=== PATIENT | female | born 1955 | race Caucasian/White ===

== ENCOUNTER → 2016-10-14 | Outpatient (CLI) | payer OTHER ==
[~2016-10-14] MED LIST: ALBUAER19 INH; ASPI81TA28 PO; DABI150C PO; LEVO50TA6 PO; METO25TA3 PO; MONT1TAB3 PO; OMEP20CA9 PO; PTDOPS OP
--- NOTE | 2016-10-15 12:36 | MAMMOGRAPHY REPORT ---
BILATERAL DIGITAL SCREENING MAMMOGRAM TOMOSYNTHESIS WITH CAD: 10/14/2016 CLINICAL HISTORY: Routine screening examination. TECHNIQUE: Breast tomosynthesis in addition to standard 2D mammography was performed. Current study was also evaluated with a Computer Aided Detection (CAD) system. COMPARISON: Comparison is made to exams dated: 10/01/2015 mammogram, 08/18/2014 mammogram, 08/16/2013 mammogram, 08/12/2012 mammogram, and 07/17/2011 mammogram - [facility]. BREAST COMPOSITION: The tissue of both breasts is almost entirely fatty. FINDINGS: There are stable punctate microcalcifications in the breasts. No new suspicious mass, arc hitectural distortion or cluster of microcalcifications is seen. IMPRESSION: ACR BI-RADS CATEGORY 1: NEGATIVE There is no mammographic evidence of malignancy. A 1 year screening mammogram is recommended. The p atient will receive written notification of the results. Approximately 10% of breast cancers are not detected with mammography. A negative mammographic repor t should not delay biopsy if a clinically suggestive mass is present. Sharee Katz M.D. ay/:10/14/2016 18:53:21 Bean Sprout Grower: Kitty TOUSSAINT(R)(M), [facility] letter sent: Normal 1/2 BI-RADS Code: ACR BI-RADS Category 1: Negative
== END | disposition home or self-care (01) ==
LOC: C.MAMM 09:06
PROVIDERS: ATTEND Student in an Organized Health Care Education/Training Program
DX: Z12.31 Encounter for screening mammogram for malignant neoplasm of breast (principal)

== ENCOUNTER → 2017-01-28 | Outpatient (CLI) | payer OTHER ==
[2017-01-28 12:38] LABS: BASO % 0.9 %; BASO ABS # 0.05 K/uL (0-0.2); COMPLETE YES; EOS % 3.2 %; HEMATOCRIT 38.9 % (37-47); IG% 0.2 %; LYMPH % 31.9 %; LYMPH ABS # 1.78 K/uL (1.2-3.4); MEAN CELL VOLUME 87.8 fL (80-100); MEAN CORPUSCULAR HEMOGLOBIN 28.2 pg (25-34); MEAN CORPUSCULAR HGB CONC 32.1 g/dl (32-36); MONO % 9.7 %; NEUT % 54.1 %; PLATELET COUNT 270 K/uL (130-400); RED BLOOD COUNT 4.43 M/uL (4.2-5.4); WHITE BLOOD COUNT 5.58 K/uL (4.8-10.8)
[2017-01-28 13:29] LABS: ALT/SGPT 21 U/L (12-78); AST/SGOT 23 U/L (15-37); BLOOD UREA NITROGEN 10 mg/dl (7-18); BUN/CREATININE RATIO 12.9 (10-20); CALCIUM 8.8 mg/dl (8.5-10.1); CARBON DIOXIDE 27 mmol/L (21-32); CHLORIDE 108 mmol/L (98-107); CREATININE 0.75 mg/dl (0.60-1.20); GLUCOSE 80 mg/dl (70-99); POTASSIUM 4.1 mmol/L (3.5-5.1); SODIUM 143 mmol/L (136-145)
[2017-01-28 13:40] LABS: ALKALINE PHOSPHATASE 106 U/L (45-117); CHOLESTEROL 249 mg/dl (0-200); HDL CHOLESTEROL 50 mg/dl; LDL CHOLESTEROL CALCULATED 174 mg/dl; TRIGLYCERIDES 124 mg/dl (0-150); VERY LOW DENSITY LIPOPROT CALC 25 mg/dl
== END | disposition home or self-care (01) ==
LOC: C.LABBFT 07:51
PROVIDERS: ATTEND Internal Medicine
DX: Z00.00 Encounter for general adult medical examination without abnormal findings (principal); I48.91 Unspecified atrial fibrillation; E78.5 Hyperlipidemia, unspecified; E03.9 Hypothyroidism, unspecified; J45.909 Unspecified asthma, uncomplicated

== ENCOUNTER → 2017-11-02 | Outpatient (CLI) | payer OTHER ==
--- NOTE | 2017-11-03 14:58 | MAMMOGRAPHY REPORT ---
BILATERAL DIGITAL SCREENING MAMMOGRAM TOMOSYNTHESIS WITH CAD: 11/02/2017 CLINICAL HISTORY: Routine screening. Patient has no complaints. TECHNIQUE: Breast tomosynthesis in addition to standard 2D mammography was performed. Current study was also evaluated with a Computer Aided Detection (CAD) system. COMPARISON: Comparison is made to exams dated: 10/14/2016 mammogram, 10/01/2015 mammogram, 08/18/2014 ma mmogram, 08/16/2013 mammogram, 08/12/2012 mammogram, and 07/17/2011 mammogram - [facility]. BREAST COMPOSITION: The tissue of both breasts is almost entirely fatty. FINDINGS: No suspicious masses, calcifications, or areas of architectural distortion are noted in ei ther breast. There has been no significant interval change compared to prior exams. Scattered bilater al benign-appearing calcifications are not significantly changed. IMPRESSION: ACR BI-RADS CATEGORY 2: BENIGN There is no mammographic evidence of malignancy. A 1 year screening mammogram is recommended. The pa tient will receive written notification of the results. Approximately 10% of breast cancers are not detected with mammography. A negative mammographic report should not delay biopsy if a clinically suggestive mass is present. Dawna Valero M.D. /:11/02/2017 16:52:35 Programmer Analyst Consultant: Sylvia TOUSSAINT(Hemalatha)(M), [facility] letter sent: Normal 1/2 BI-RADS Code: ACR BI-RADS Category 2: Benign
== END | disposition home or self-care (01) ==
LOC: C.MAMM 16:25
PROVIDERS: ATTEND Internal Medicine
DX: Z12.31 Encounter for screening mammogram for malignant neoplasm of breast (principal)

== ENCOUNTER → 2017-11-23 | Outpatient (CLI) | payer OTHER ==
[2017-11-23 12:56] LABS: ALBUMIN 3.8 gm/dl (3.4-5.0); ALT/SGPT 22 U/L (12-78); BLOOD UREA NITROGEN 11 mg/dl (7-18); CARBON DIOXIDE 26 mmol/L (21-32); CHOLESTEROL 230 mg/dl (0-200); CREATININE 0.79 mg/dl (0.60-1.20); GLUCOSE 86 mg/dl (70-99); POTASSIUM 4.4 mmol/L (3.5-5.1); SODIUM 140 mmol/L (136-145)
[2017-11-23 13:04] LABS: ALKALINE PHOSPHATASE 111 U/L (45-117); AST/SGOT 21 U/L (15-37); LDL CHOLESTEROL CALCULATED 155 mg/dl; TOTAL PROTEIN 7.3 gm/dl (6.4-8.2)
== END | disposition home or self-care (01) ==
LOC: C.LABBFT 08:00
PROVIDERS: ATTEND Physician Assistant Medical
DX: E03.9 Hypothyroidism, unspecified (principal)

== ENCOUNTER 2025-06-18 21:10 | Observation (INO) ==
[2025-06-18 22:08] LABS: Appearance Urine Cloudy (Clear); Bacteria Urine Automated None Seen (None Seen); Cast Urine Automated 0-2 /lpf (0-2); Epithelial Cell Urine Auto 0-2 /hpf (0-2); Glucose Urine UA Negative (Negative); RBC Urine Automated >20 /hpf (0-2); WBC Urine Automated 0-5 /hpf (0-5)
[2025-06-18 22:12] LABS: Hematocrit (blood only) 36.2 % (37.0-47.0); Hemoglobin 11.9 g/dl (12.0-16.0); Immature Granulocytes # (auto) 0.03 K/uL (0.01-0.20); Immature Granulocytes % (auto) 0.3 %; Mean Corpuscular Hemoglobin 28.9 pg (25.0-34.0); Mean Corpuscular Volume 87.9 fL (80.0-100.0); Platelet Count 233 K/uL (130-400); RDW Standard Deviation 43.7 fL (36.4-46.3); Red Blood Count 4.12 M/uL (4.20-5.40); White Blood Count 10.19 K/ul (4.8-10.8)
[2025-06-18] MEDS: ONDANSETRON INJ 2 MG/ML 2 ML VIAL IV STA (22:23)
[2025-06-18] MEDS: HYDROmorphone INJ 0.5 MG/0.5 ML SYR IV STA (22:23)
[2025-06-18] MEDS: KETOROLAC TROMETHAMINE 15 MG/ML VIAL IM PRN (22:23)
[2025-06-18] MEDS: SODIUM CHLORIDE 0.9% 500 ML IV ONE (22:24)
[2025-06-18 22:29] LABS: Alanine Aminotransferase 13.0 U/L (7-52); Albumin Globulin Ratio 1.3 (0.9-2); Albumin Level 4.2 gm/dl (3.4-5.0); Alkaline Phosphatase 102.0 U/L (34-104); Anion Gap 9.0 (3-11); Bilirubin,Total 0.5 mg/dl (0.2-1.0); Blood Urea Nitrogen 15.0 mg/dl (6-23); Calcium 9.6 mg/dl (8.6-10.3); Carbon Dioxide 25.0 mmol/L (21-32); Chloride 105.0 mmol/L (98-107); Creatinine Clr Calc Pharmacy 44.9 ml/min; Globulin 3.2 gm/dl (2.5-4.0); Glucose 110.0 mg/dl (70-99(Fasting)); Lipase 36.0 U/L (11-82); Potassium 4.0 mmol/L (3.5-5.1); Sodium 139.0 mmol/L (136-145); Total Protein 7.4 gm/dl (6.0-8.3)
--- NOTE | 2025-06-18 23:19 | Emergency Department Note ---
Impression & Plan Hydronephrosis with renal and ureteral calculus obstruction, Acute UTI Admit to the [facility] ED Provider Note NAME: BHARATH HERRERA AGE: 70 SEX: Female INFORMANT: Patient ED PROVIDER(S): Tona Tabares DO CHIEF COMPLAINT: Right flank pain PLAN: Disposition: admit to the [facility] MEDICAL DECISION MAKING: This is a 70-year-old female patient who presents to the emergency department complaining of worsening right flank pain. Patient had some mild suprapubic abdominal pressure approximately 4-5 days ago. She was seen by her PCP on Thursday diagnosed with a kidney infection and started on Macrobid just 2 days ago. She seemed to be doing better until around 5 PM this afternoon when she developed right sided flank pain and began vomiting. Patient does describe a previous urological history for which she was hospitalized approximately 18 months ago and underwent a urological procedure with [facility] urology. Care/management discussed with: agricultural equipment sales manager and [facility] Triage Nursing notes: reviewed and agree With them. Vital Signs: reviewed and remarkable for hypertension Chronic Medical/Social Conditions affecting care: previous urological problem Prior/ Outside/ External records reviewed: I did review the urological notes from 18 months ago. I did review urine cultures. Differential Diagnosis: pyelonephritis, ureteral colic, obstructive uropathy Diagnostics, independently interpreted by me: Imaging studies: CT scan of the abdomen/pelvis: As per Imbro HPI: 70 year old Female arrives for evaluation of right flank pain. female patient presents to the emergency department worsening right flank pain. Patient had some mild suprapubic abdominal pressure proximately 4-5 days ago. She was seen by her PCP on Thursday diagnosed with a kidney infection and started on Macrobid just 2 days ago. She seemed to be doing better until around 5 PM this afternoon when she developed right sided flank pain and began vomiting. PAST MEDICAL HISTORY: See Below, PAST SURGICAL HISTORY: See Below, SOCIAL HISTORY: See Below, HOME MEDICATIONS: see list ALLERGIES: see list VITALS: See Below PHYSICAL EXAMINATION: HEENT: Head - normocephalic and atraumatic. Pupils are equal, round, and reactive to light. Extraocular eye muscles are intact, and sclera are anicteric. Nose - moist nasal mucosa without discharge. Mouth - moist buccal mucosa. Oropharynx is nonerythematous and there is no tonsillar exudate or edema noted. Neck: Supple; no Cervical lymphadenopathy Heart: Regular rate and rhythm. There is a normal S1 and S2 with no murmurs, clicks, or gallops appreciated. Lungs: Clear to auscultation bilaterally with no wheezes, rales, or rhonchi. Abdomen: Soft, completely nontender, nondistended, with good bowel sounds. There are no palpable pulsatile masses or hepatosplenomegaly. There is no guarding, rigidity, or rebound noted. Extremities: No evidence of cyanosis, clubbing, or edema. There are easily palpable peripheral pulses. Skin: warm and dry with good turgor and no rashes. emergency department treatment: IV normal saline, IV Zofran, IV Toradol, IV Dilaudid, IV Rocephin Emergency department course: Patient was evaluated in room A-10. A complete history and physical was performed. IV lock was initiated and labs were drawn as above. A urine specimen was obtained. patient's medicated with IV normal saline, IV Zofran, IV Toradol and IV Dilaudid. I did review previous [facility] urology notes. Patient went for CT scan of the abdomen/pelvis. Patient was started on IV antibiotics. I did discuss case with the case manager specialist and [facility]. Past Med/Surg History Problem List (Updated 06/19/25 @ 17:40 by Tona Tabares DO) Acute UTI (Acute) Hydronephrosis with renal and ureteral calculus obstruction (Acute) Renal colic on right side Ureteral calculus Obstructive uropathy Bilateral kidney stones Renal lesion Previous section (Chronic) H/O colonoscopy (Chronic) H/O tubal ligation (Chronic) HLD (hyperlipidemia) (Chronic) Hypothyroidism (Chronic) Asthma (Chronic) PAF (paroxysmal atrial fibrillation) (Chronic) Medical History Paroxysmal SVT (supraventricular tachycardia) History of COVID-19 (12/2022) symptoms resolved Hyperlipidemia Hypothyroidism Asthma PAF (paroxysmal atrial fibrillation) Follows with [facility] cardio Surgical History Hx of colonoscopy Hx of tubal ligation Hx of section x 3 Social History Smoking Status: Never smoker Second Hand Exposure: No; Do You Dip or Chew Tobacco: No; Hx Alcohol Use: No Hx Substance Use: No Preferred Language: Dutch Communication Ability: Effective Visual Impairment: Partially Limited [place] Reporter Required: No Beliefs That Will Affect Care: None Current Living Situation: Spouse Other Information That Helps Us Care for You: No Feels Safe at Home: Yes Safety Concerns: Feels Safe At This Time Assistive Devices: Glasses Allergies Allergies Allergy/AdvReac Type Severity Reaction Status Date / Time adhesive Allergy Intermediate Rash Verified 02/25/24 12:26 cat dander Allergy Intermediate nasal Verified 02/25/24 12:26 congestion latex Allergy Rash Verified 06/19/25 00:55 Sulfa (Sulfonamide AdvReac Intermediate Flushing, Verified 06/19/25 00:55 Antibiotics) nausea Home Meds Home Medications Medication Instructions Recorded Confirmed atorvastatin 20 mg tablet (Lipitor) 20 mg PO QPM 01/25/24 06/19/25 albuterol sulfate 90 mcg/actuation 90 mcg inhalation Q4 PRN Shortness 02/11/24 06/19/25 aerosol inhaler Of Breath Or Wheezing levothyroxine 50 mcg tablet 50 mcg PO DAILYBB 02/11/24 06/19/25 metoprolol succinate 25 mg 25 mg PO QPM 06/19/25 06/19/25 tablet,extended release 24 hr metoprolol succinate 25 mg 50 mg PO QAM 06/19/25 06/19/25 tablet,extended release 24 hr rivaroxaban 20 mg tablet (Xarelto) 20 mg PO QDD 06/19/25 06/19/25 Previous Rx's Medication Instructions Recorded ibuprofen 600 mg tablet 600 mg PO Q6H PRN pain #20 tabs 06/19/25 ondansetron HCl 4 mg tablet 4 mg PO Q6H PRN nausea and 06/19/25 vomiting #20 tabs oxycodone 5 mg tablet 5 mg PO Q4H PRN severe pain (scale 06/19/25 score 7-10) #10 tabs tamsulosin 0.4 mg capsule 0.4 mg PO QAM #30 caps 06/19/25 Results & Data (ED) Vital Signs Vital Signs - 24 hr 06/18/25 21:14 06/18/25 21:28 06/18/25 21:28 Temperature 36.6 C Temperature Source Oral Pulse Rate 75 70 Pulse Rate [Apical] 70 Pulse Rhythm Regular Pulse Rhythm [Apical] Regular Pulse Strength [Apical] Normal Respiratory Rate 18 17 17 Respiratory Effort / Characteristics Non-Labored Spontaneous Non-Labored Spontaneous Respiratory Depth Normal Normal Respiratory Pattern Regular Regular Blood Pressure 191/90 H Blood Pressure [Right Arm] 159/83 H Blood Pressure Mean 123 Blood Pressure Mean [Right Arm] 108 Blood Pressure Position Sitting Blood Pressure Position [Right Arm] Semi-fowlers Pulse Oximetry 98 98 98 Oxygen Delivery Method Room Air Room Air Room Air Sepsis Recent Fever Within 48 Hours No Sepsis New/Unexplained Change in Mental Status N/A Sepsis Action Taken by Nursing No Action Required 06/18/25 21:28 06/18/25 21:37 06/18/25 23:11 Temperature Temperature Source Pulse Rate 70 70 Pulse Rate [Apical] 66 Pulse Rhythm Regular Pulse Rhythm [Apical] Pulse Strength [Apical] Respiratory Rate 17 17 Respiratory Effort / Characteristics Non-Labored Spontaneous Respiratory Depth Normal Respiratory Pattern Regular Blood Pressure Blood Pressure [Right Arm] 158/82 H Blood Pressure Mean Blood Pressure Mean [Right Arm] 107 Blood Pressure Position Blood Pressure Position [Right Arm] Semi-fowlers Pulse Oximetry 98 98 Oxygen Delivery Method Room Air Room Air Sepsis Recent Fever Within 48 Hours Sepsis New/Unexplained Change in Mental Status Sepsis Action Taken by Nursing Laboratory Data 06/19/25 06:38 06/19/25 06:38 Lab Results 06/18/25 Range/Units 21:54 WBC 10.19 (4.8-10.8) K/ul RBC 4.12 L (4.20-5.40) M/uL Hgb 11.9 L (12.0-16.0) g/dl Hct 36.2 L (37.0-47.0) % MCV 87.9 (80.0-100.0) fL MCH 28.9 (25.0-34.0) pg MCHC 32.9 (32.0-36.0) g/dL RDW Std Deviation 43.7 (36.4-46.3) fL RDW Coeff of Doretha 13.6 (11.5-14.5) % Plt Count 233 (130-400) K/uL MPV 10.0 (9.4-12.4) fL Immature Gran % (Auto) 0.3 % Neut % (Auto) 79.9 % Lymph % (Auto) 12.3 % [place] % (Auto) 6.1 % Eos % (Auto) 0.7 % Baso % (Auto) 0.7 % Neut # (Auto) 8.15 H (1.40-6.50) K/uL Lymph # (Auto) 1.25 (1.20-3.40) K/uL [place] # (Auto) 0.62 H (0.11-0.59) K/uL Eos # (Auto) 0.07 (0.00-0.50) K/uL Baso # (Auto) 0.07 (0.00-0.20) K/uL Immature Gran # (Auto) 0.03 (0.01-0.20) K/uL Sodium 139 (136-145) mmol/L Potassium 4.0 (3.5-5.1) mmol/L Chloride 105 (98-107) mmol/L Carbon Dioxide 25 (21-32) mmol/L Anion Gap 9 (3-11) BUN 15 (6-23) mg/dl Creatinine 1.02 (0.6-1.2) mg/dl Est Cr Clr Drug Dosing 44.9 ml/min eGFR 58.45 BUN/Creatinine Ratio 14.7 (10-20) Glucose 110 H (70-99(Fasting)) mg/dl Calcium 9.6 (8.6-10.3) mg/dl Total Bilirubin 0.5 (0.2-1.0) mg/dl AST 26 (13-39) U/L ALT 13 (7-52) U/L Alkaline Phosphatase 102 (34-104) U/L Total Protein 7.4 (6.0-8.3) gm/dl Albumin 4.2 (3.4-5.0) gm/dl Globulin 3.2 (2.5-4.0) gm/dl Albumin/Globulin Ratio 1.3 (0.9-2) Lipase 36 (11-82) U/L Urine Color Yellow Urine Appearance Cloudy A (Clear) Urine pH 7.0 (4.5-7.5) Ur Specific [place] 1.013 (1.000-1.030) Urine Protein Negative (Negative) Urine Glucose (UA) Negative (Negative) Urine Ketones Negative (Negative) Urine Blood 2+ H (Negative) Urine Nitrite Negative (Negative) Urine Bilirubin Negative (Negative) Urine Urobilinogen Negative (Negative) Ur Leukocyte Esterase Trace H (Negative) Urine WBC (Auto) 0-5 (0-5) /hpf Urine RBC (Auto) >20 H (0-2) /hpf U Hyaline Cast (Auto) 0-2 (0-2) /lpf U Epithel Cells (Auto) 0-2 (0-2) /hpf Urine Bacteria (Auto) None Seen (None Seen) Urine Comment Administered Medications Acetaminophen (Acetaminophen 325 Mg Tab) 650 mg PO QID PRN PRN Reason: pain/fever Stop: 07/19/25 01:00 Last Admin: 06/19/25 05:00 Dose: 650 mg Documented By: CHANTALE Levothyroxine Sodium (Levothyroxine Sodium 50 Mcg Tablet) 50 mcg PO DAILYBB [facility] Stop: 07/19/25 06:29 Last Admin: 06/19/25 06:09 Dose: 50 mcg Documented By: CHANTALE Metoprolol Succinate (Metoprolol Succ 50mg Ext Rel Tab) 50 mg PO QAM [facility] Stop: 07/19/25 08:59 Last Admin: 06/19/25 10:44 Dose: 50 mg Documented By: OPAL Ondansetron HCl (Ondansetron Inj 2 Mg/Ml 2 Ml Vial) 4 mg IV Q6H PRN PRN Reason: Nausea And Vomiting Stop: 07/19/25 08:42 Last Admin: 06/19/25 08:59 Dose: 4 mg Documented By: OPAL Discontinued Medications Hydromorphone HCl (Hydromorphone Inj 0.5 Mg/0.5 Ml Syr) 0.5 mg IV NOW STA Stop: 06/18/25 22:18 Last Admin: 06/18/25 22:23 Dose: 0.5 mg Documented By: FLORENCE Sodium Chloride (Nss) 500 mls @ 999 mls/hr IV .Q31M ONE Stop: 06/18/25 22:47 Last Infusion: 06/18/25 22:59 Dose: Infused Documented By: Admin: 06/18/25 22:24 Dose: 999 mls/hr Documented By: FLORENCE Sodium Chloride (Nss) 500 mls @ 125 mls/hr IV .Q4H ESTELA Stop: 06/19/25 04:59 Last Infusion: 06/19/25 01:26 Dose: Infused Documented By: Admin: 06/19/25 00:55 Dose: 125 mls/hr Documented By: KIRK Co-signed By: FLORENCE Ceftriaxone Sodium (Rocephin) 1,000 mg in 50 mls @ 100 mls/hr IV NOW STA Stop: 06/19/25 01:16 Last Infusion: 06/19/25 01:55 Dose: Infused Documented By: Admin: 06/19/25 01:25 Dose: 100 mls/hr Documented By: KIRK Co-signed By: FLORENCE Sodium Chloride (Nss) 500 mls @ 75 mls/hr IV .Q6H40M ONE Stop: 06/19/25 07:39 Last Infusion: 06/19/25 08:43 Dose: Infused Documented By: Admin: 06/19/25 01:25 Dose: 75 mls/hr Documented By: KIRK Co-signed By: FLORENCE Lactated Ringer's (Lr) 1,000 mls @ 80 mls/hr IV .[id number] ESTELA Stop: 06/22/25 08:59 Last Infusion: 06/19/25 10:54 Dose: Infused Documented By: Admin: 06/19/25 08:56 Dose: 80 mls/hr Documented By: OPAL Ketorolac Tromethamine (Ketorolac Tromethamine 15 Mg/Ml Vial) 15 mg IM Q6H PRN PRN Reason: Pain Stop: 06/23/25 22:16 Last Admin: 06/18/25 22:23 Dose: 15 mg Documented By: FLORENCE Ondansetron HCl (Ondansetron Inj 2 Mg/Ml 2 Ml Vial) 4 mg IV NOW STA Stop: 06/18/25 22:18 Last Admin: 06/18/25 22:23 Dose: 4 mg Documented By: FLORENCE Ondansetron HCl (Ondansetron 4 Mg Od Tab) 4 mg PO NOW STA Stop: 06/19/25 17:06 Last Admin: 06/19/25 17:20 Dose: 4 mg Documented By: OPAL Tamsulosin HCl (Tamsulosin Hcl 0.4 Mg Cap) 0.4 mg PO NOW ONE Stop: 06/19/25 01:28 Last Admin: 06/19/25 01:29 Dose: 0.4 mg Documented By: FLORENCE Discharge Plan Visit Data Chief Complaint: Flank Pain Stated Complaint: KIDNEY INFECTION VOMITING ED Provider: Tona Tabares Discharge Problem: Hydronephrosis with renal and ureteral calculus obstruction, Acute UTI Patient Disposition: Admitted As Inpatient Condition: Serious Discharge Instructions Interventions: ED Discharge Assessment Last Done: 06/19/25 01:57
--- NOTE | 2025-06-19 00:23 | CT Scan Report ---
Exam(s): CT ABDOMEN + PELVIS Without Contrast EXAM: CT Abdomen and Pelvis Without Intravenous Contrast CLINICAL HISTORY: Reason for exam: eval right kidney. OTHER: Other Notes: eval right kidney TECHNIQUE: Axial computed tomography images of the abdomen and pelvis without intravenous contrast. CTDI is 24.58 mGy and DLP is 959.55 mGy-cm. Automated exposure control was utilized for the study. A dose lowering technique was utilized adhering to the principles of ALARA. COMPARISON: 05/09/2024 FINDINGS: Lung bases: Scarring at the medial lower lobes bilaterally. Mediastinum: Small to moderate hiatal hernia. ABDOMEN: Liver: Unremarkable. Gallbladder and bile ducts: Cholelithiasis. No ductal dilation. Pancreas: Unremarkable. No ductal dilation. Spleen: Calcified granulomas in the spleen. Adrenals: Unremarkable. No mass. Kidneys and ureters: Left kidney and collecting system are normal. Obstructing 3 mm right UVJ stone causing mild upstream hydroureteronephrosis. Stomach and bowel: Colonic stool retention suggesting constipation. No obstruction. No mucosal thickening. PELVIS: Appendix: No evidence of appendicitis. Visualized appendix is normal. Bladder: Unremarkable. Reproductive: Small myometrial calcifications suggesting fibroids. ABDOMEN and PELVIS: Intraperitoneal space: Unremarkable. No free air, significant free fluid, or fluid collection. Bones/joints: Degenerative change in the lumbar spine. No acute fracture. No dislocation. Soft tissues: Unremarkable. Vasculature: Mild atherosclerosis. No abdominal aortic aneurysm. Lymph nodes: Unremarkable. No enlarged lymph nodes. IMPRESSION: 1. Obstructing 3 mm right UVJ stone causing mild upstream hydroureteronephrosis. 2. Colonic stool retention suggesting constipation. Electronically signed by: Parvin Luevano M.D. 06/19/25 00:21 AM
[2025-06-19] MEDS: SODIUM CHLORIDE 0.9% 500 ML IV SCH (00:55)
--- NOTE | 2025-06-19 00:58 | History & Physical Report ---
Date of Service June 19, 2025 Assessment & Plan (1) Obstructive uropathy: Plan: Assessment and plan below following discussion of case with ED provider and reviewing patient history/pertinent normal/abnormal diagnostic test results. Renal colic secondary to obstructing kidney stone ureteral stricture, calyceal diverticulum as per records No sepsis for now Mild anemia, new onset possibly from microscopic hematuria from obstructing kidney stone, hx PAF on Xarelto PSVT valvular heart disease (moderate MR/TR, mild AR/MT, TTE 2023) hypertension, stable hyperlipidemia, on statin Rx pulmonary hypertension/bronchial asthma, patient currently without respiratory issues hypothyroidism, euthyroid as of recent TSH Hyperglycemia rule out DM Admit to MedSurg Analgesia Flomax trial Strain urine Urology consult re: obstructing kidney stone N.p.o. in anticipation of procedure Hold Xarelto in anticipation of procedure Check hemoglobin A1c DVT prophylaxis. SCDs while Xarelto on hold Full code Text document was generated using Fluid voice recognition software. It may contain grammatical or spelling errors. Kindly contact undersigned for clarification of any documentation item in question. History of Present Illness Chief Complaint: Flank pain Primary Care Provider: Casandra Kent DO History obtained from patient and records. Medical history significant for PAF on Xarelto, PSVT, valvular heart disease (moderate MR/TR, mild AR/MT, TTE 2023), hypertension, hyperlipidemia, pulmonary hypertension, bronchial asthma, hypothyroidism, GERD, urolithiasis, ureteral stricture, calyceal diverticulum as per records. Last confinement 2015 for rapid A-fib. 5 days ago, patient noted dysuria symptoms associated with dark foul-smelling urine. No fever, no chills. Patient seen at PCPs office 3 days ago. UA showed possible infection. Patient prescribed Macrobid. No growth on final urine CS. Patient had worsening right flank discomfort over the last 2 days. Some nausea with bilious emesis. No chest pain, no SOB. No gross hematuria. IV ceftriaxone administered at the ER. 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 Allergies Allergy/AdvReac Type Severity Reaction Status Date / Time adhesive Allergy Intermediate Rash Verified 02/25/24 12:26 cat dander Allergy Intermediate nasal Verified 02/25/24 12:26 congestion latex Allergy Rash Verified 06/19/25 00:55 Sulfa (Sulfonamide AdvReac Intermediate Flushing, Verified 06/19/25 00:55 Antibiotics) nausea Home Medications Medication Instructions Recorded Confirmed Type atorvastatin 20 mg tablet (Lipitor) 20 mg PO QPM 01/25/24 06/19/25 History albuterol sulfate 90 mcg/actuation 90 mcg inhalation Q4 PRN Shortness 02/11/24 06/19/25 History aerosol inhaler Of Breath Or Wheezing levothyroxine 50 mcg tablet 50 mcg PO DAILYBB 02/11/24 06/19/25 History metoprolol succinate 25 mg 25 mg PO QPM 06/19/25 06/19/25 History tablet,extended release 24 hr metoprolol succinate 25 mg 50 mg PO QAM 06/19/25 06/19/25 History tablet,extended release 24 hr nitrofurantoin 100 mg PO AMHS 06/19/25 06/19/25 History monohydrate/macrocrystals 100 mg capsule rivaroxaban 20 mg tablet (Xarelto) 20 mg PO QDD 06/19/25 06/19/25 History Past Med/Surg History Problem List (Updated 06/19/25 @ 06:14 by Ciaran Mejía MD) Obstructive uropathy Bilateral kidney stones Renal lesion Previous section (Chronic) H/O colonoscopy (Chronic) H/O tubal ligation (Chronic) HLD (hyperlipidemia) (Chronic) Hypothyroidism (Chronic) Asthma (Chronic) PAF (paroxysmal atrial fibrillation) (Chronic) Medical History Paroxysmal SVT (supraventricular tachycardia) History of COVID-19 (12/2022) Hyperlipidemia Hypothyroidism Asthma PAF (paroxysmal atrial fibrillation) Surgical History Hx of colonoscopy Hx of tubal ligation Hx of section Social History Smoking Status: Never smoker Second Hand Exposure: No; Do You Dip or Chew Tobacco: No; Hx Alcohol Use: No Hx Substance Use: No Preferred Language: Gambian Communication Ability: Effective Visual Impairment: Partially Limited Flex O Writer Operator Required: No Beliefs That Will Affect Care: None Current Living Situation: Spouse Other Information That Helps Us Care for You: No Feels Safe at Home: Yes Safety Concerns: Feels Safe At This Time Assistive Devices: Glasses Review of Systems Review of Systems: As per HPI, all other systems reviewed and negative Physical Exam Physical Exam: GENERAL: Comfortable, pleasant, looks younger than stated age, no respiratory distress SKIN: Normal color, warm HEENT: Bespectacled, pink palpebral conjunctivae, no ptosis, dry buccal mucosa NECK : Supple, no tenderness CHEST : CTA, no tenderness HEART : RRR, no obvious murmurs ABDOMEN: Some distention, minimal right flank tenderness EXTREMITIES : No LE swelling/tenderness, palpable pulses, no other conspicuous deformities noted NEUROLOGIC : Coherent, no facial asymmetry, no other gross focality Results & Data Results & Data Vital Signs (Past 12 Hours) Vital Signs Temp Pulse Pulse Resp BP BP Pulse Ox 06/18/25 23:11 66 17 158/82 H 98 06/18/25 21:37 70 17 98 06/18/25 21:28 70 06/18/25 21:28 70 17 98 06/18/25 21:28 70 17 159/83 H 98 06/18/25 21:14 36.6 C 75 18 191/90 H 98 O2 Del Method 06/18/25 23:11 Room Air 06/18/25 21:37 Room Air 06/18/25 21:28 06/18/25 21:28 Room Air 06/18/25 21:28 Room Air 06/18/25 21:14 Room Air Laboratory Results Laboratory Results WBC 10.19 K/ul (4.8-10.8) 06/18/25 21:54 RBC 4.12 M/uL (4.20-5.40) L 06/18/25 21:54 Hgb 11.9 g/dl (12.0-16.0) L 06/18/25 21:54 Hct 36.2 % (37.0-47.0) L 06/18/25 21:54 MCV 87.9 fL (80.0-100.0) 06/18/25 21:54 MCH 28.9 pg (25.0-34.0) 06/18/25 21:54 MCHC 32.9 g/dL (32.0-36.0) 06/18/25 21:54 RDW Std Deviation 43.7 fL (36.4-46.3) 06/18/25 21:54 RDW Coeff of Doretha 13.6 % (11.5-14.5) 06/18/25 21:54 Plt Count 233 K/uL (130-400) 06/18/25 21:54 MPV 10.0 fL (9.4-12.4) 06/18/25 21:54 Immature Gran % (Auto) 0.3 % 06/18/25 21:54 Neut % (Auto) 79.9 % 06/18/25 21:54 Lymph % (Auto) 12.3 % 06/18/25 21:54 Taliaferro % (Auto) 6.1 % 06/18/25 21:54 Eos % (Auto) 0.7 % 06/18/25 21:54 Baso % (Auto) 0.7 % 06/18/25 21:54 Neut # (Auto) 8.15 K/uL (1.40-6.50) H 06/18/25 21:54 Lymph # (Auto) 1.25 K/uL (1.20-3.40) 06/18/25 21:54 Taliaferro # (Auto) 0.62 K/uL (0.11-0.59) H 06/18/25 21:54 Eos # (Auto) 0.07 K/uL (0.00-0.50) 06/18/25 21:54 Baso # (Auto) 0.07 K/uL (0.00-0.20) 06/18/25 21:54 Immature Gran # (Auto) 0.03 K/uL (0.01-0.20) 06/18/25 21:54 Sodium 139 mmol/L (136-145) 06/18/25 21:54 Potassium 4.0 mmol/L (3.5-5.1) 06/18/25 21:54 Chloride 105 mmol/L (98-107) 06/18/25 21:54 Carbon Dioxide 25 mmol/L (21-32) 06/18/25 21:54 Anion Gap 9 (3-11) 06/18/25 21:54 BUN 15 mg/dl (6-23) 06/18/25 21:54 Creatinine 1.02 mg/dl (0.6-1.2) 06/18/25 21:54 Est Cr Clr Drug Dosing 44.9 ml/min 06/18/25 21:54 eGFR 58.45 06/18/25 21:54 BUN/Creatinine Ratio 14.7 (10-20) 06/18/25 21:54 Glucose 110 mg/dl (70-99(Fasting)) H 06/18/25 21:54 Calcium 9.6 mg/dl (8.6-10.3) 06/18/25 21:54 Total Bilirubin 0.5 mg/dl (0.2-1.0) 06/18/25 21:54 AST 26 U/L (13-39) 06/18/25 21:54 ALT 13 U/L (7-52) 06/18/25 21:54 Alkaline Phosphatase 102 U/L (34-104) 06/18/25 21:54 Total Protein 7.4 gm/dl (6.0-8.3) 06/18/25 21:54 Albumin 4.2 gm/dl (3.4-5.0) 06/18/25 21:54 Globulin 3.2 gm/dl (2.5-4.0) 06/18/25 21:54 Albumin/Globulin Ratio 1.3 (0.9-2) 06/18/25 21:54 Lipase 36 U/L (11-82) 06/18/25 21:54 Urine Color Yellow 06/18/25 21:54 Urine Appearance Cloudy (Clear) A 06/18/25 21:54 Urine pH 7.0 (4.5-7.5) 06/18/25 21:54 Ur Specific Pierron 1.013 (1.000-1.030) 06/18/25 21:54 Urine Protein Negative (Negative) 06/18/25 21:54 Urine Glucose (UA) Negative (Negative) 06/18/25 21:54 Urine Ketones Negative (Negative) 06/18/25 21:54 Urine Blood 2+ (Negative) H 06/18/25 21:54 Urine Nitrite Negative (Negative) 06/18/25 21:54 Urine Bilirubin Negative (Negative) 06/18/25 21:54 Urine Urobilinogen Negative (Negative) 06/18/25 21:54 Ur Leukocyte Esterase Trace (Negative) H 06/18/25 21:54 Urine WBC (Auto) 0-5 /hpf (0-5) 06/18/25 21:54 Urine RBC (Auto) >20 /hpf (0-2) H 06/18/25 21:54 U Hyaline Cast (Auto) 0-2 /lpf (0-2) 06/18/25 21:54 U Epithel Cells (Auto) 0-2 /hpf (0-2) 06/18/25 21:54 Urine Bacteria (Auto) None Seen (None Seen) 06/18/25 21:54 Urine Comment 06/18/25 21:54 Impressions Abdomen/Pelvis CT 06/18/25 22:17 Exam(s): CT ABDOMEN + PELVIS Without Contrast EXAM: CT Abdomen and Pelvis Without Intravenous Contrast CLINICAL HISTORY: Reason for exam: eval right kidney. OTHER: Other Notes: eval right kidney TECHNIQUE: Axial computed tomography images of the abdomen and pelvis without intravenous contrast. CTDI is 24.58 mGy and DLP is 959.55 mGy-cm. Automated exposure control was utilized for the study. A dose lowering technique was utilized adhering to the principles of ALARA. COMPARISON: 05/09/2024 FINDINGS: Lung bases: Scarring at the medial lower lobes bilaterally. Mediastinum: Small to moderate hiatal hernia. ABDOMEN: Liver: Unremarkable. Gallbladder and bile ducts: Cholelithiasis. No ductal dilation. Pancreas: Unremarkable. No ductal dilation. Spleen: Calcified granulomas in the spleen. Adrenals: Unremarkable. No mass. Kidneys and ureters: Left kidney and collecting system are normal. Obstructing 3 mm right UVJ stone causing mild upstream hydroureteronephrosis. Stomach and bowel: Colonic stool retention suggesting constipation. No obstruction. No mucosal thickening. PELVIS: Appendix: No evidence of appendicitis. Visualized appendix is normal. Bladder: Unremarkable. Reproductive: Small myometrial calcifications suggesting fibroids. ABDOMEN and PELVIS: Intraperitoneal space: Unremarkable. No free air, significant free fluid, or fluid collection. Bones/joints: Degenerative change in the lumbar spine. No acute fracture. No dislocation. Soft tissues: Unremarkable. Vasculature: Mild atherosclerosis. No abdominal aortic aneurysm. Lymph nodes: Unremarkable. No enlarged lymph nodes. IMPRESSION: 1. Obstructing 3 mm right UVJ stone causing mild upstream hydroureteronephrosis. 2. Colonic stool retention suggesting constipation. Electronically signed by: Parvin Luevano M.D. 06/19/25 00:21 AM Diagnostic Findings EKG as per my interpretation :Rate 70, NSR, normal axis, LVH, no ischemia
[2025-06-19] MEDS ORDERED: PROMETHAZINE 6.25 MG/50.25 ML BAG IV PRN (01:01)
[2025-06-19] MEDS: SODIUM CHLORIDE 0.9% 500 ML IV ONE (01:25)
[2025-06-19] MEDS: cefTRIAXone SODIUM 1,000 MG/50 ML BAG IV STA (01:25)
[2025-06-19] MEDS ORDERED: MoRPHine SULFATE 4 MG/ML 1 ML CARP\\VIAL IV PRN (01:28)
[2025-06-19] MEDS: TAMSULOSIN HCL 0.4 MG CAP PO ONE (01:29)
[2025-06-19] MEDS: ACETAMINOPHEN 325 MG TAB PO PRN (05:00)
[2025-06-19] MEDS: LEVOTHYROXINE SODIUM 50 MCG TABLET PO SCH (06:09)
[2025-06-19 07:09] LABS: Hematocrit (blood only) 32.2 % (37.0-47.0); Hemoglobin 10.7 g/dl (12.0-16.0); Immature Granulocytes # (auto) 0.01 K/uL (0.01-0.20); Immature Granulocytes % (auto) 0.2 %; Mean Corpuscular Hemoglobin 29.2 pg (25.0-34.0); Mean Corpuscular Volume 88.0 fL (80.0-100.0); Platelet Count 184 K/uL (130-400); RDW Standard Deviation 43.7 fL (36.4-46.3); Red Blood Count 3.66 M/uL (4.20-5.40); White Blood Count 5.88 K/ul (4.8-10.8)
[2025-06-19 07:33] LABS: Anion Gap 5.0 (3-11); Blood Urea Nitrogen 13.0 mg/dl (6-23); Calcium 9.0 mg/dl (8.6-10.3); Carbon Dioxide 27.0 mmol/L (21-32); Chloride 109.0 mmol/L (98-107); Creatinine Clr Calc Pharmacy 51.5 ml/min; Glucose 106.0 mg/dl (70-99(Fasting)); Potassium 4.3 mmol/L (3.5-5.1); Sodium 141.0 mmol/L (136-145)
[2025-06-19 08:13] VITALS: RESP 16
[2025-06-19 08:30] LABS: Hemoglobin A1C 5.4 % (4.5-5.6)
[2025-06-19] MEDS ORDERED: KETOROLAC TROMETHAMINE 15 MG/ML VIAL IV PRN (08:43)
[2025-06-19] MEDS: LACTATED RINGER'S 1,000 ML IV SCH (08:56)
[2025-06-19] MEDS: ONDANSETRON INJ 2 MG/ML 2 ML VIAL IV PRN (08:59)
--- NOTE | 2025-06-19 10:00 | Discharge Summary ---
Discharge Summary Date of Service June 19, 2025 Principal Dx & Hospital Course #1 = Principal Diagnosis (1) Ureteral calculus: (2) Renal colic on right side: (3) Bilateral kidney stones: (4) Hypothyroidism: (5) Asthma: (6) PAF (paroxysmal atrial fibrillation): Plan Patient 70-year-old female with had a previous history of significant kidney stones or symptoms related to this presented with flank pain. Imaging revealed a 3 mm right ureteral calculus with some mild evidence of obstruction. Patient had been treated as an outpatient for suspected urinary tract infection prior to this. Patient was admitted to hospital. Given fluid resuscitation. Continued on IV antibiotics. Urology consultation was obtained. They evaluated the patient discussed with the patient a trial of passage versus ureteral stent placement. After having all the information patient decided she wanted to continue to try passing the stone. Flomax was instituted. She was straining her urine. Pain was being managed with some oral oxycodone and nonsteroidal. Should be discharged home to follow-up with her PCP, continue to strain her urine and follow-up with urology. Outpatient urine culture did not show any growth. No evidence of urinary tract infection. No need for any ongoing antibiotics. Notes For Next Care Provider Follow-up with urology Medication Changes From Visit Oxycodone for pain Ibuprofen for pain Macrobid discontinued Admission HPI Per Admitting Provider History obtained from patient and records. Medical history significant for PAF on Xarelto, PSVT, valvular heart disease (moderate MR/TR, mild AR/MI, TTE 2023), hypertension, hyperlipidemia, pulmonary hypertension, bronchial asthma, hypothyroidism, GERD, urolithiasis, ureteral stricture, calyceal diverticulum as per records. Last confinement 2015 for rapid A-fib. 5 days ago, patient noted dysuria symptoms associated with dark foul-smelling urine. No fever, no chills. Patient seen at PCPs office 3 days ago. UA showed possible infection. Patient prescribed Macrobid. No growth on final urine CS. Patient had worsening right flank discomfort over the last 2 days. Some nausea with bilious emesis. No chest pain, no SOB. No gross hematuria. IV ceftriaxone administered at the ER. 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 Lungs: Clear to auscultation, decreased, no wheezes rales or rhonchi CV: S1-S2, regular Abdomen: Soft, minimal right flank tenderness Extremities: No significant edema Neuro: No focal deficits Psych: Cooperative, normal mood Updated Medication List Medication Instructions Recorded Confirmed Type atorvastatin 20 mg tablet (Lipitor) 20 mg PO QPM 01/25/24 06/19/25 History albuterol sulfate 90 mcg/actuation 90 mcg inhalation Q4 PRN Shortness 02/11/24 06/19/25 History aerosol inhaler Of Breath Or Wheezing levothyroxine 50 mcg tablet 50 mcg PO DAILYBB 02/11/24 06/19/25 History ibuprofen 600 mg tablet 600 mg PO Q6H PRN pain #20 tabs 06/19/25 Rx metoprolol succinate 25 mg 25 mg PO QPM 06/19/25 06/19/25 History tablet,extended release 24 hr metoprolol succinate 25 mg 50 mg PO QAM 06/19/25 06/19/25 History tablet,extended release 24 hr nitrofurantoin 100 mg PO AMHS 06/19/25 06/19/25 History monohydrate/macrocrystals 100 mg capsule oxycodone 5 mg tablet 5 mg PO Q4H PRN severe pain (scale 06/19/25 Rx score 7-10) #10 tabs rivaroxaban 20 mg tablet (Xarelto) 20 mg PO QDD 06/19/25 06/19/25 History tamsulosin 0.4 mg capsule 0.4 mg PO QAM #30 caps 06/19/25 Rx Hospital Stay Data Consultations 06/19/25 00:42 ED Decision to Admit Stat 06/19/25 01:28 Consult Urology Routine Diagnostic Imagining Performed 06/18/25 22:17 CT Abd and Pelvis [CT abd pelvis wo con] Stat Reviewed imaging, laboratory and diagnostic studies. Pertinent findings as below. WBCs 5.8 Hemoglobin 10.7 Platelets of 184 Electrolytes stable Creatinine 0.89 Hemoglobin A1c 5.4% Lactate 0.8 Procalcitonin 0.04 Reviewed outside EMR: Urine culture from 06/16/2025 no growth Pending Results Patient Have Any Pending Studies at Discharge: Yes Discharge Instructions Given to Patient (Per Discharging Provider) Strain all urine until followed up with urology Follow-up with urology as coordinated through their office Drink plenty of fluids Urine testing did not show any signs of infection. No need for additional antibiotics. Total Time Total Time Spent Total Time Spent (In Minutes): 31
--- NOTE | 2025-06-19 10:32 | Urology Consultation ---
Date of Consultation June 19, 2025 Assessment & Plan (1) Renal colic on right side: (2) Ureteral calculus: 70-year-old female admitted for renal colic secondary to an obstructing 3 mm right UVJ stone. Patient afebrile with stable vitals Labs reviewedcreatinine 0.89, WBC 5.88, hemoglobin 10.7 Urinalysis on arrival was not suggestive of infection Her urine culture from 06/[address] abdomen pelvis reviewed and discussed with patient We discussed options for stone management including trial of passage with medical expulsive therapy versus surgical intervention with right ureteral stent placement today with need for second procedure We discussed she has a decent probability of passing her stone spontaneously given its size and location She continues to have some nausea, but pain is much improved After discussion, she elects trial of passage Recommend provide patient with urine strainer, tamsulosin, and as needed analgesia Will arrange outpatient follow-up with our service will sign off, please contact her service with any additional questions or concerns Supervising Physician Co-Signing Physician Notes Discussed patient with [facility]. Agree with plan. Offered patient stent but they declined. Urology to sign off. History of Present Illness Reason for Consultation: renal colic Attending Physician: Fito Reyes DO History of Present Illness This is a 70-year-old female who follows with urology for history of left c alyceal diverticulum and stricture of the distal left ureter. She presented to the ED on 06/18/2025 for evaluation of right flank pain, nausea and vomiting. On arrival to ED, she was afebrile, hypertensive. Labs showed creatinine 1.02, WBC 10.19, hemoglobin 11.9. Urinalysis showed 2+ blood, >20 RBC, otherwise unremarkable. Workup included CT abdomen pelvis without contrast which demonstrated an obstructing 3 mm right UVJ stone with mild hydroureteronephrosis. She was admitted for right renal colic. Urology is consulted regarding right ureteral stone. Patient seen and examined at bedside this morning. She continues to have nausea. Right flank pain has improved. No fever or chills. She is voiding spontaneously. She reports she was treated for UTI on 06/16 by her PCP. She showed me results on her portal and her urine culture from 06/16 showed no growth. No prior history of stones. Allergies Allergy/AdvReac Type Severity Reaction Status Date / Time adhesive Allergy Intermediate Rash Verified 02/25/24 12:26 cat dander Allergy Intermediate nasal Verified 02/25/24 12:26 congestion latex Allergy Rash Verified 06/19/25 00:55 Sulfa (Sulfonamide AdvReac Intermediate Flushing, Verified 06/19/25 00:55 Antibiotics) nausea Home Medications Medication Instructions Recorded Confirmed Type atorvastatin 20 mg tablet (Lipitor) 20 mg PO QPM 01/25/24 06/19/25 History albuterol sulfate 90 mcg/actuation 90 mcg inhalation Q4 PRN Shortness 02/11/24 06/19/25 History aerosol inhaler Of Breath Or Wheezing levothyroxine 50 mcg tablet 50 mcg PO DAILYBB 02/11/24 06/19/25 History ibuprofen 600 mg tablet 600 mg PO Q6H PRN pain #20 tabs 06/19/25 Rx metoprolol succinate 25 mg 25 mg PO QPM 06/19/25 06/19/25 History tablet,extended release 24 hr metoprolol succinate 25 mg 50 mg PO QAM 06/19/25 06/19/25 History tablet,extended release 24 hr oxycodone 5 mg tablet 5 mg PO Q4H PRN severe pain (scale 06/19/25 Rx score 7-10) #10 tabs rivaroxaban 20 mg tablet (Xarelto) 20 mg PO QDD 06/19/25 06/19/25 History tamsulosin 0.4 mg capsule 0.4 mg PO QAM #30 caps 06/19/25 Rx Patient History Medical History Paroxysmal SVT (supraventricular tachycardia) History of COVID-19 (12/2022) symptoms resolved Hyperlipidemia Hypothyroidism Asthma PAF (paroxysmal atrial fibrillation) Follows with [facility] cardio Surgical History Hx of colonoscopy Hx of tubal ligation Hx of section x 3 Social History Smoking Status: Never smoker Second Hand Exposure: No; Do You Dip or Chew Tobacco: No; Hx Alcohol Use: No Hx Substance Use: No Preferred Language: Slovenian Communication Ability: Effective Visual Impairment: Partially Limited Folder Operator Required: No Beliefs That Will Affect Care: None Current Living Situation: Spouse Other Information That Helps Us Care for You: No Feels Safe at Home: Yes Safety Concerns: Feels Safe At This Time Assistive Devices: Glasses Review of Systems Constitutional: as per Subjective / HPI Genitourinary: as per Subjective / HPI Physical Exam Constitutional: well developed and well nourished; no acute distress Respiratory: normal respiratory effort; no respiratory distress and no labored breathing Gastrointestinal (Abdomen): Inspection/Auscultation: abdomen normal to inspection Musculoskeletal: Head/Neck/Chest: normocephalic Neurologic: moves all extremities and awake Psychiatric: Orientation: alert and oriented x 3 Results & Data Vital Signs (Past 12 Hours) Vital Signs Temp Pulse Pulse Pulse Resp BP Pulse Ox 06/19/25 07:36 36.8 C 75 16 132/71 95 06/19/25 02:21 36.9 C 73 15 152/78 H 95 06/19/25 01:52 69 16 146/79 H 97 06/19/25 01:28 66 06/19/25 01:00 70 16 142/98 H 96 06/18/25 23:11 66 17 158/82 H 98 O2 Del Method 06/19/25 07:36 Room Air 06/19/25 02:21 Room Air 06/19/25 01:52 Room Air 06/19/25 01:28 06/19/25 01:00 Room Air 06/18/25 23:11 Room Air PG Care Time/CCT Total # of Minutes Spent Total Time Spent with Patient: Total time spent is greater than 50% in coordination of care (as documented) at patient's floor/unit and/or counseling patient: Coding Level of Care Code 89108 INT INP/OBS CARE 2/55MIN Diagnoses Renal colic on right side N23 Ureteral calculus N20.1
[2025-06-19] MEDS: METOPROLOL SUCC 50MG EXT REL TAB PO SCH (10:44)
--- NOTE | 2025-06-19 11:52 | Electrocardiogram Report ---
Test Reason : Blood Pressure : */* mmHG Vent. Rate : 70 BPM Atrial Rate : 70 BPM P-R Int : 158 ms QRS Dur : 76 ms QT Int : 390 ms P-R-T Axes : 46 28 24 degrees QTcB Int : 421 ms Normal sinus rhythm Minimal voltage criteria for LVH, may be normal variant Borderline ECG When compared with ECG of 17-Jun-2016 12:31, No significant change was found Confirmed by Arnel Concepcion ([id number]) on 06/19/2025 11:51:52 AM Referred By: Confirmed By: Arnel Concepcion
[2025-06-19 15:09] VITALS: BP 120/66; PULSE 67; TEMP 98.8; O2SAT 96
[2025-06-19] MEDS: ONDANSETRON 4 MG OD TAB PO STA (17:20)
[2025-06-19] MEDS ORDERED: METOPROLOL SUCC 25MG EXT REL TAB PO SCH (21:00)
[2025-06-19] MEDS ORDERED: ATORVASTATIN 20 MG TAB PO SCH (21:00)
[2025-06-20] MEDS ORDERED: TAMSULOSIN HCL 0.4 MG CAP PO SCH (09:00)
== END 2025-06-19 17:42 | disposition home or self-care (01) | DRG 694 ==
LOC: ED 21:10 → 3E 06-19 01:00 → INTOOBSV 06-19 01:00 → 3E 06-19 01:57